=== PATIENT | female | born 1975 | race Caucasian/White ===

== ENCOUNTER 2022-07-06 13:20 | Emergency (ER) | payer OTHER ==
[2022-07-06 13:34] VITALS: BP 125/88; PULSE 111; RESP 18; TEMP 101.8; BMI 26.0
[2022-07-06] MEDS ORDERED: ALBUTEROL SO4 2.5/IPRATROPIUM 0.5 INH SOL 3 ML VIAL.NEB. NEB ONE (14:53)
[2022-07-06] MEDS ORDERED: IBUPROFEN 600 MG TABLET (FP) PO ONE ×2 (14:53→15:24)
[2022-07-06] MEDS ORDERED: ACETAMINOPHEN 500 MG TABLET (FP) PO ONE (14:53)
[2022-07-06] MEDS ORDERED: ALBUTEROL SO4 HFA INHALER IH ONE ×2 (15:24→15:30)
[2022-07-06] MEDS ORDERED: ACETAMINOPHEN 325 MG TABLET (FP) ONE (15:24)
== END 2022-07-06 16:55 | disposition home or self-care (01) ==
LOC: JER 13:20
DX: R50.9 Fever, unspecified (principal); R05.1 Acute cough; B97.4 Respiratory syncytial virus as the cause of diseases classified elsewhere
CPT/HCPCS: 0241U-QW; 71046-TC-FY; 99284-25